=== PATIENT | female | born 1970 | race Caucasian/White ===

== ENCOUNTER 2016-11-11 19:33 | Emergency (ER) | payer OTHER ==
[2016-11-11 19:43] VITALS: BP 144/90; PULSE 73; TEMP 98; BMI 29.2
[2016-11-11 20:37] LABS: URINE APPEARANCE CLEAR; URINE BILIRUBIN NEGATIVE (NEGATIVE); URINE BLOOD NEGATIVE (NEGATIVE); URINE COLOR LTYELLOW; URINE GLUCOSE (UA) NEGATIVE (NEGATIVE); URINE KETONE NEGATIVE (NEGATIVE); URINE LEUK ESTERASE NEGATIVE (NEGATIVE); URINE NITRITE NEGATIVE (NEGATIVE); URINE PROTEIN NEGATIVE (NEGATIVE); URINE UROBILINOGEN 2.0 E.U/dl E.U./dl (0.2-1.0)
[2016-11-11] MEDS ORDERED: ONDANSETRON 4 MG/2 ML VIAL IVPUSH ONE (20:43)
[2016-11-11] MEDS ORDERED: SODIUM CHLORIDE 1,000 ML IV STA (20:43)
[2016-11-11] MEDS ORDERED: KETOROLAC TROMETHAMINE 30 MG/1 ML VIAL IM ONE (20:46)
[2016-11-11] MEDS ORDERED: KETOROLAC TROMETHAMINE 30 MG/1 ML VIAL ONE ×2 (20:54→20:55)
[2016-11-11] MEDS ORDERED: ONDANSETRON 4 MG/2 ML VIAL ONE (20:54)
--- NOTE | 2016-11-11 20:54 | PDOC ---
*Physical Exam - Vital Signs Last Vital Signs Temp Pulse Resp BP Pulse Ox 98.0 F 73 20 144/90 99 11/11/16 19:39 11/11/16 19:39 11/11/16 19:39 11/11/16 19:39 11/11/16 19:39 ED Treatment Course - LABORATORY CBC & Chemistry Diagram: 11/11/16 20:36 11/11/16 20:36 - ADDITIONAL ORDERS Additional order review: Laboratory Results 11/11/16 20:29 Urine HCG, Qual Negative Medical Decision Making - Medical Decision Making 11/11/16 20:53 Pt seen by the Advanced Practice Provider under my direct supervision Ancillary studies reviewed I agree with plan as outlined by the Advanced Practice Provider BALJIT Odonnell *DC/Admit/Observation/Transfer Diagnosis at time of Disposition: Renal colic - Discharge Dispostion Disposition: HOME - Referrals Referrals: Judd Rios MD., [Staff Physician] - Damon Acharya [Primary Care Provider] - - Patient Instructions Printed Discharge Instructions: Kidney Stones -- Adult Additional Instructions: FOLLOW UP WITH DR. RIOS (UROLOGY) THIS WEEK FOR FURTHER EVALUATION. CALL TO SCHEDULE APPOINTMENT. TAKE MEDICATIONS PRESCRIBED. YOU HAVE BEEN DIAGNOSED WITH HAVING MULTIPLE NON-OBSTRUCTING KIDNEY STONES. IF YOUR SYMPTOMS WORSEN, RETURN FOR FURTHER EVALUATION. DO NOT DRIVE, DRINK ALCOHOL, OR OPERATE HEAVY MACHINERY WHILE TAKING PERCOCET. SEGUIMIENTO CON EL DR. RIOS (UROLOGA) ESTA SEMANA PARA LA EVALUACIN ADICIONAL. LLAMAR PARA CALIFICAR LA RADHA. ANTWAN MEDICAMENTOS KILO SE PRESCRIBE. USTED AZEVEDO SIDO DIAGNOSTICADO CON TENER MLTIPLES PIEDRAS DE RIN NO OBSTRUCTIVAS. SI CRISTY SNTOMAS RESULTAN, DEVUELVA PARA EVALUACIN ADICIONAL. NO CONDUZCA, MODE ALCOHOL, NI OPERE MAQUINAS PESADAS MIENTRAS YAJAIRA PERCOCET. Print Language: KENYAN - Post Discharge Activity Work/School Note: Back to Work
[2016-11-11 20:58] LABS: BASOPHIL 0.9 % (0-2.0); EOSINOPHIL 1.2 % (0-4.5); MCH 28.7 pg (25.7-33.7); MCHC 33.4 g/dl (32.0-36.0); MEAN CELL VOLUME 85.9 fl (80-96); MEAN PLT VOLUME 8.9 fl (7.5-11.1); PLATELET COUNT 307 K/MM3 (134-434); RDW 12.4 % (11.6-15.6); WHITE BLOOD COUNT 9.4 K/mm3 (4.0-10.0)
[2016-11-11 21:28] LABS: ALBUMIN 3.8 g/dl (3.4-5.0); ANION GAP 9 (8-16); CALCIUM 8.5 mg/dL (8.5-10.1); CO2 25 mmol/L (21-32); CREATININE 0.7 mg/dL (0.55-1.02); GLUCOSE,RANDOM 85 mg/dL (74-106); SGOT/AST 14 U/L (15-37); SGPT/ALT 27 U/L (12-78); TOT PROT 7.1 g/dl (6.4-8.2)
[2016-11-11 21:35] LABS: ALK PHOS 64 U/L (45-117); BILIRUBIN,TOTAL 0.1 mg/dL (0.2-1.0)
--- NOTE | 2016-11-11 22:52 | PDOC ---
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 Patient denies fever, change in appetite, CP, Diff breathing, dysuria, hematuria or any other complaints at this time. LNMP: 09-18-2016. Timing/Duration: reports: getting worse Quality: reports: moderate, cramping, throbbing Abdominal Pain Onset Location: reports: flank (Left) Pain Radiation: reports: other (Lower Abd.) Activities at Onset: reports: none Past History - Travel Traveled outside of the country in the last 30 days: No Close contact w/someone who was outside of country & ill: No - Past Medical History Allergies/Adverse Reactions: Allergies Allergy/AdvReac Type Severity Reaction Status Date / Time No Known Allergies Allergy Verified 11/11/16 19:39 Home Medications: Ambulatory Orders Ciprofloxacin [Cipro (Restricted To Id)] 500 mg PO Q12H #20 tablet 12/07/15 Docusate Sodium [Colace -] 100 mg PO DAILY #7 capsule 12/07/15 Metronidazole [Flagyl -] 500 mg PO TID #15 tablet 12/07/15 Oxycodone HCl/Acetaminophen [Percocet 5-325 mg Tablet] 1 - 2 tab PO Q4H #30 tablet MDD 6 tab 12/07/15 Ondansetron [Zofran Odt -] 4 mg SL Q6H PRN #20 od.tablet 11/12/16 Oxycodone HCl/Acetaminophen [Oxycodone-Acetaminophen 5-325] 1 each PO Q6H PRN # 16 tablet MDD 4 tabs 11/12/16 Tamsulosin HCl [Flomax] 0.4 mg PO DAILY #20 cap.er.24h 11/12/16 Other medical history: denies - Surgical History Appendectomy: Yes - Immunization History Immunization Up to Date: Yes - Psycho/Social/Smoking Cessation Hx Anxiety: No Suicidal Ideation: No Smoking Status: No Smoking History: Never smoked Have you smoked in the past 12 months: No Number of Cigarettes Smoked Daily: 0 Information on smoking cessation initiated: No Hx Alcohol Use: No Drug/Substance Use Hx: No Substance Use Type: None Hx Substance Use Treatment: No Abd/GI Specific PMHX - Complaint Specific PMHX Colitis: No Diverticulitis: No Gall Bladder Disease: No GERD: No Hepatitis: No Irritable Bowel Synd (IBS): No Pancreatitis: No GI Ulcer Disease: No Review of Systems - Review of Systems Able to Perform ROS?: Yes Is the patient limited [place]an proficient: No Constitutional: No: Chills, Fever Respiratory: No: Cough, Orthopnea, Shortness of Breath, Stridor, Wheezing Cardiac (ROS): No: Chest Pain, Edema, Palpitations, Syncope, Chest Tightness ABD/GI: Yes: Nausea, Vomiting, Abdominal cramping. No: Constipated, Diarrhea, Difficulty Swallowing, Poor Appetite, Poor Fluid Intake, Rectal Bleeding : Yes: Flank Pain, Pain. No: Burning, Dysuria, Hematuria, Urgency Musculoskeletal: Yes: Back Pain Integumentary: No: Bruising, Erythema, Rash, Sweating Neurological: No: Headache, Numbness, Seizure, Tingling, Tremors, Weakness, Dizziness All Other Systems: Reviewed and Negative *Physical Exam - Vital Signs Last Vital Signs Temp Pulse Resp BP Pulse Ox 98.0 F 73 20 144/90 99 11/11/16 19:39 11/11/16 19:39 11/11/16 19:39 11/11/16 19:39 11/11/16 19:39 ED Treatment Course - LABORATORY CBC & Chemistry Diagram: 11/11/16 20:36 11/11/16 20:36 - ADDITIONAL ORDERS Additional order review: Laboratory Results 11/11/16 11/11/16 20:36 20:29 Sodium 141 Potassium 4.1 Chloride 107 Carbon Dioxide 25 Anion Gap 9 BUN 19 H D Creatinine 0.7 D Creat Clearance w eGFR > 60 Random Glucose 85 Calcium 8.5 Total Bilirubin 0.1 L D AST 14 L D ALT 27 Alkaline Phosphatase 64 Total Protein 7.1 Albumin 3.8 Urine Color Ltyellow Urine Appearance Clear Urine pH 6.0 Ur Specific [place] 1.020 Urine Protein Negative Urine Glucose (UA) Negative Urine Ketones Negative Urine Blood Negative Urine Nitrite Negative Urine Bilirubin Negative Urine Urobilinogen 2.0 e.u/dl H Ur Leukocyte Esterase Negative Urine HCG, Qual Negative 11/11/16 20:36 RBC 4.26 MCV 85.9 MCHC 33.4 RDW 12.4 MPV 8.9 Neutrophils % 60.0 D Lymphocytes % 31.4 D Monocytes % 6.5 Eosinophils % 1.2 D Basophils % 0.9 D - RADIOLOGY Radiology Studies Ordered: Category Date Time Status ABDOMEN & PELVIS CT W/O CONTR [CT] Stat CT Scan 11/11/16 20:45 Completed - Medications Given in the ED: ED Medications Discontinued Medications Generic Name Dose Route Start Last Admin Trade Name Freq PRN Reason Stop Dose Admin Sodium Chloride 1,000 mls @ 1,000 mls/hr 11/11/16 20:43 11/11/16 20:55 Normal Saline - IV 11/11/16 21:42 1,000 mls/hr ASDIR STA Administration Ketorolac Tromethamine 30 mg 11/11/16 20:46 11/11/16 20:55 Toradol Injection - IM 11/11/16 20:47 30 mg ONCE ONE Administration Ondansetron HCl 4 mg 11/11/16 20:43 11/11/16 20:55 Zofran Injection IVPUSH 11/11/16 20:44 4 mg ONCE ONE Administration *DC/Admit/Observation/Transfer Diagnosis at time of Disposition: Renal colic - Discharge Dispostion Disposition: HOME Condition at time of disposition: Improved Admit: No - Prescriptions Prescriptions: Tamsulosin HCl [Flomax] 0.4 mg PO DAILY #20 cap.er.24h Oxycodone HCl/Acetaminophen [Oxycodone-Acetaminophen 5-325] 1 each PO Q6H PRN # 16 tablet MDD 4 tabs PRN Reason: Severe Pain Ondansetron [Zofran Odt -] 4 mg SL Q6H PRN #20 od.tablet PRN Reason: Nausea - Referrals Referrals: Damon Acharya [Primary Care Provider] - Judd Crowe MD., MD [Staff Physician] - - Patient Instructions Printed Discharge Instructions: Kidney Stones -- Adult Additional Instructions: FOLLOW UP WITH DR. CROWE (UROLOGY) THIS WEEK FOR FURTHER EVALUATION. CALL TO SCHEDULE APPOINTMENT. TAKE MEDICATIONS PRESCRIBED. YOU HAVE BEEN DIAGNOSED WITH HAVING MULTIPLE NON-OBSTRUCTING KIDNEY STONES. IF YOUR SYMPTOMS WORSEN, RETURN FOR FURTHER EVALUATION. DO NOT DRIVE, DRINK ALCOHOL, OR OPERATE HEAVY MACHINERY WHILE TAKING PERCOCET. SEGUIMIENTO CON EL DR. CROWE (UROLOGA) ESTA SEMANA PARA LA EVALUACIN ADICIONAL. LLAMAR PARA CALIFICAR LA RADHA. ANTWAN MEDICAMENTOS KILO SE PRESCRIBE. USTED AZEVEDO SIDO DIAGNOSTICADO CON TENER MLTIPLES PIEDRAS DE RIN NO OBSTRUCTIVAS. SI CRISTY SNTOMAS RESULTAN, DEVUELVA PARA EVALUACIN ADICIONAL. NO CONDUZCA, MODE ALCOHOL, NI OPERE MAQUINAS PESADAS MIENTRAS YAJAIRA PERCOCET. Print Language: BAHAMIAN - Post Discharge Activity Work/School Note: Back to Work
== END 2016-11-12 01:00 | disposition home or self-care (01) ==
LOC: JER 19:33
PROC: 3E033GC Introduction of Other Therapeutic Substance into Peripheral Vein, Percutaneous Approach (ICD-10-PCS; principal; 2016-11-11)
PROC: 3E0233Z Introduction of Anti-inflammatory into Muscle, Percutaneous Approach (ICD-10-PCS; 2016-11-11)
DX: N23 Unspecified renal colic (principal)
CPT/HCPCS: 36415; 74176-TC; 80053; 81003; 84703; 85025; 99282-25

== ENCOUNTER 2017-05-04 09:05 | Day surgery (SDC) | payer OTHER ==
[2017-04-19 11:28] VITALS: BMI 29.7
--- NOTE | 2017-05-04 10:44 | OP ---
Operative Note - Note: Operative Date: 05/04/17 Pre-Operative Diagnosis: Right renal calculus Operation: Right ESWL Post-Operative Diagnosis: Same as Pre-op Surgeon: Judd Crowe MD. Anesthesia: MAC Operative Report Dictated: Yes
[2017-05-04] MEDS ORDERED: PROPOFOL 20 ML ONE (11:07)
[2017-05-04] MEDS ORDERED: MIDAZOLAM HCL 2 MG/2 ML SINGLE DOSE VIAL ONE (11:07)
[2017-05-04] MEDS ORDERED: ONDANSETRON 4 MG/2 ML VIAL IVPUSH PRN (11:44)
[2017-05-04] MEDS ORDERED: oxyCODONE HCL 5 MG TABLET PO PRN (11:44)
[2017-05-04] MEDS ORDERED: ACETAMINOPHEN 325 MG TABLET (FP) PO PRN (11:44)
[2017-05-04] MEDS ORDERED: IBUPROFEN 800 MG/8 ML IJ IVPB PRN (11:44)
[2017-05-04] MEDS ORDERED: LACTATED RINGERS SOLUTION 1,000 ML IV SCH (11:45)
[2017-05-04 12:51] VITALS: TEMP 97.5
[2017-05-04 13:08] VITALS: BP 113/65; PULSE 60
--- NOTE | 2017-05-05 08:32 | OP ---
DATE OF OPERATION: 05/04/2017 SURGEON: Judd Crowe MD PREOPERATIVE DIAGNOSIS: Right renal calculus. POSTOPERATIVE DIAGNOSIS: Right renal calculus. PROCEDURE: Right lithotripsy. HISTORY: The patient is a 46-year-old female with history of intermittent flank pain who on preoperative evaluation had a 17-mm upper pole renal calculus. We discussed some treatment options including observation, and the patient elected to undergo the above stated procedure. Risks and benefits of treatment and alternative treatments were discussed in detail. All questions were answered. BRIEF OPERATIVE NOTE: The patient was brought to the operating room, placed in supine position. Once adequate anesthesia was administered, the stone was localized using ultrasonography. At this time, sedation was administered. The stone was again confirmed using three-dimensional axis. Approximately 2500 shocks were delivered in electromagnetic fashion. The stone appeared to fragment into multiple small fragments. Patient tolerated the procedure well and was brought to the recovery room in stable and satisfactory condition. JUDD CROWE M.D. RADHA/[id number]
== END 2017-05-04 15:40 | disposition home or self-care (01) ==
LOC: JASU-SURG 09:05
PROVIDERS: ATTEND Urology
PROC: 0TF3XZZ Fragmentation in Right Kidney Pelvis, External Approach (ICD-10-PCS; principal; 2017-05-04 10:45)
DX: N20.0 Calculus of kidney (principal)
CPT/HCPCS: 84703; 94760

== ENCOUNTER 2017-07-13 08:31 | Day surgery (SDC) | payer OTHER ==
[2017-07-13] MEDS ORDERED: MIDAZOLAM HCL 2 MG/2 ML SINGLE DOSE VIAL ONE (10:07)
[2017-07-13] MEDS ORDERED: PROPOFOL 20 ML ONE (10:07)
[2017-07-13] MEDS ORDERED: LIDOCAINE HCL/PF 2% SDV 5ML VIAL ONE (10:07)
--- NOTE | 2017-07-13 10:23 | OP ---
Operative Note - Note: Operative Date: 07/13/17 Pre-Operative Diagnosis: right renal stone Operation: Right lithotripsy Post-Operative Diagnosis: Same as Pre-op Surgeon: Judd Crowe MD. Anesthesia: General
[2017-07-13] MEDS ORDERED: ONDANSETRON 4 MG/2 ML VIAL IVPUSH PRN (10:50)
[2017-07-13] MEDS ORDERED: oxyCODONE HCL 5 MG TABLET PO PRN (10:50)
[2017-07-13] MEDS ORDERED: IBUPROFEN 800 MG/8 ML IJ IVPB PRN (10:50)
[2017-07-13] MEDS ORDERED: LACTATED RINGERS SOLUTION 1,000 ML IV SCH (11:00)
[2017-07-13 13:30] VITALS: TEMP 97.8
[2017-07-13 15:11] VITALS: BP 109/82; PULSE 75
--- NOTE | 2017-07-14 07:59 | OP ---
DATE OF OPERATION: 07/13/2017 PREOPERATIVE DIAGNOSIS: Right renal calculus. PROCEDURE: Right lithotripsy. HISTORY: This is a 47-year-old female with a history of a right 5- to 6-mm lower pole calculus found on preoperative imaging. After discussing treatment options including observation, the patient above stated procedure. Risks, benefits, and alternatives were discussed in detail. All questions were answered. BRIEF OPERATIVE NOTE: The patient brought into the operating room, placed in the supine position. Once the stone was visualized using 3-D fluoroscopy, sedation was administered. The patient tolerated the procedure well after approximately 2500 shocks were delivered in fashion. Patient then transferred to the recovery room in stable and satisfactory condition. Melina [id number]
== END 2017-07-13 15:13 | disposition home or self-care (01) ==
LOC: JASU-SURG 08:31
PROVIDERS: ATTEND Urology
PROC: 0TF3XZZ Fragmentation in Right Kidney Pelvis, External Approach (ICD-10-PCS; principal; 2017-07-13 09:45)
DX: N20.0 Calculus of kidney (principal)
CPT/HCPCS: 84703

== ENCOUNTER 2018-08-22 18:11 | Emergency (ER) | payer OTHER ==
--- NOTE | 2018-08-22 18:43 | PDOC ---
Rapid Medical Evaluation Medical Evaluation: Allergies Allergy/AdvReac Type Severity Reaction Status Date / Time No Known Allergies Allergy Verified 07/12/17 14:23 08/22/18 18:42 I have performed a brief in-person evaluation of this patient. The patient presents with a chief complaint of: Pertinent physical exam findings: I have ordered the following: The patient will proceed to the ED for further evaluation. 08/22/18 19:52 Discharge Disposition - Referrals Referrals: Ty Carranza MD [Primary Care Provider] - - Patient Instructions - Post Discharge Activity
[2018-08-22 18:48] VITALS: BP 130/81; PULSE 106; TEMP 100.7; BMI 29.2
--- NOTE | 2018-08-22 18:50 | PDOC ---
Rapid Medical Evaluation Chief Complaint: Shortness of Breath Medical Evaluation: Allergies Allergy/AdvReac Type Severity Reaction Status Date / Time No Known Allergies Allergy Verified 07/12/17 14:23 08/22/18 18:43 I have performed a brief in-person evaluation of this patient. The patient presents with a chief complaint of:cough/ fevers/ chills/ bady aches Pertinent physical exam findings: pale/ moist cough/ weak I have ordered the following: Influenza The patient will proceed to the ED for further evaluation. Discharge Disposition - Referrals Referrals: Ty Carranza MD [Primary Care Provider] - - Patient Instructions - Post Discharge Activity
[2018-08-22] MEDS ORDERED: SODIUM CHLORIDE 2,041 ML IV ONE (19:27)
--- NOTE | 2018-08-22 19:30 | PDOC ---
Attending Attestation - ED Attending Attestation I have performed the following: I have examined & evaluated the patient, The case was reviewed & discussed with the resident, I agree w/resident's findings & plan - HPI HPI: 08/22/18 19:54 The patient is a 48 year old female with no significant PMH presenting with cough and body aches for the past two days. Patient is also complaining of mild dysuria two days ago, that has since resolved on its own. Patient has not taken any medications at home. Patient denies having her flu shot this year. The patient denies chest pain, shortness of breath, headache and dizziness. Denies fever, chills, nausea, vomit, diarrhea and constipation. Denies frequency, urgency and hematuria. Allergies: NKA Past surgical history: appendectomy Social history: No reported alcohol, drug or cigarette use. PCP: Dr. Carranza - Physicial Exam PE: <Leonie Garrett - Last Filed: 08/22/18 22:10> - Resident Resident Name: Kristi Cedillo - Physicial Exam PE: 08/22/18 22:09 GENERAL: Awake, in no acute distress HEAD: No signs of trauma EYES: ENT:clear without exudates. Moist mucosa NECK: Normal ROM, supple, no lymphadenopathy, JVD, or masses LUNGS:. Normal work of breathing. HEART: Regular rate and rhythm, ABDOMEN: Soft, . Non-distended. CHEST WALL: BACK: No midline tenderness. EXTREMITIES:. No erythema, or tenderness NEUROLOGICAL: Alert, SKIN: Warm, Dry - Medical Decision Making 08/22/18 22:05 48-year-old female with body aches and fever Influenza A swab is positive Chest x-ray shows no focal consolidation Labs do not suggest sepsis Impression influenza a Plan DC home with primary care follow-up and supportive care <Darlene Munoz - Last Filed: 08/22/18 22:12>
[2018-08-22] MEDS ORDERED: ACETAMINOPHEN INJECTION 100 ML IVPB ONE (19:48)
--- NOTE | 2018-08-22 20:05 | PDOC ---
History of Present Illness - General Chief Complaint: Shortness of Breath Stated Complaint: Shortness of Breath Time Seen by Provider: 08/22/18 19:15 History Source: Patient Exam Limitations: No Limitations - History of Present Illness Initial Comments: 08/22/18 19:59 [id number] previously healthy female who is UTD on immunizations except did not get flu shot this year, p/w 2 days worsening cough, sore throat, mild SOB, head-to- toe body aches, chills worsening today to the point where she decided she needed to come in. She additionally notes burning urination for one day, two days ago. Took naproxen yesterday, no medications for sxs today. She denies headache, neck pain/stiffness, back pain, chest pain, abdominal pain, n/v/d/c, etc. Past History - Past Medical History Allergies/Adverse Reactions: Allergies Allergy/AdvReac Type Severity Reaction Status Date / Time No Known Allergies Allergy Verified 08/22/18 18:47 Home Medications: Ambulatory Orders NK [No Known Home Medication] 11/12/16 Anemia: No Asthma: No Cancer: No Cardiac Disorders: No CVA: No COPD: No CHF: No Dementia: No Diabetes: No GI Disorders: No Disorders: Yes (kidney stone) HTN: No Hypercholesterolemia: No Liver Disease: No Seizures: No Thyroid Disease: No - Surgical History Appendectomy: Yes - Immunization History Immunization Up to Date: Yes - Suicide/Smoking/Psychosocial Hx Smoking Status: No Smoking History: Never smoked Have you smoked in the past 12 months: No Number of Cigarettes Smoked Daily: 0 Information on smoking cessation initiated: No Hx Alcohol Use: No Drug/Substance Use Hx: No Substance Use Type: None Hx Substance Use Treatment: No Review of Systems - Review of Systems Able to Perform ROS?: Yes Comments:: 08/22/18 20:02 GEN: chills, malaise, generalized weakness, no fever, or weight change HEENT: no ear pain, sore throat, vision change, or eye pain CV: no chest pain, palpitations, lightheadedness, syncope, or edema RESP: cough, no wheezing GI: no abdominal pain, nausea, vomiting, diarrhea, constipation, or white/black/ bloody stool : dysuria (resolved), hematuria, incontinence, retention, bleeding, or discharge MSK: no neck/back pain, muscle weakness/pain, or joint swelling/pain NEURO: no headache, seizure, vertigo, numbness, tingling, or focal weakness PSYCH: no substance use, no behavior change SKIN: no jaundice, no rash ROS otherwise negative except as noted in HPI *Physical Exam - Vital Signs Last Vital Signs Temp Pulse Resp BP Pulse Ox 100.7 F H 106 H 21 H 130/81 98 08/22/18 18:45 08/22/18 18:45 08/22/18 18:45 08/22/18 18:45 08/22/18 18:45 - Physical Exam Comments: 08/22/18 20:04 GENERAL: tired and a bit toxic appearing-appearing, a bit diaphoretic and pale, A/Ox4, mild distress, answers questions appropriately, Citizen Of [place] speaking, sons at bedside HEENT: PERRLA, EOMI, moist mucous membranes NECK/BACK: no midline ttp, no spinal stepoff or deformity, no hematoma, full ROM , neck supple CARDIOVASCULAR: rapid regular rate, normal S1S2, no MGR, strong peripheral pulses, capillary refill <2 seconds, extremities wwp, no edema LUNGS/RESPIRATORY: no respiratory distress, CTAB GI/ABDOMEN: symmetric [id number], normoactive BS, soft, no ttp, no midline pulsatile masses : no CVA tenderness EXTREMITIES: no muscle atrophy, no acute deformity, no edema SKIN: warm and dry, no pallor, no jaundice, no rash, no bruising, no skin breakdown, no cuts, no lesions NEUROLOGICAL: GCS 15, CN II-XII grossly intact, 5/5 strength proximally and distally, no facial droop Moderate Sedation - Procedure Monitoring Vital Signs: Procedure Monitoring Vital Signs Temperature 100.7 F H 08/22/18 18:45 Pulse Rate 106 H 08/22/18 18:45 Respiratory Rate 21 H 08/22/18 18:45 Blood Pressure 130/81 08/22/18 18:45 O2 Sat by Pulse Oximetry (%) 98 08/22/18 18:45 ED Treatment Course - LABORATORY CBC & Chemistry Diagram: 08/22/18 19:45 08/22/18 19:45 - RADIOLOGY Radiology Studies Ordered: Category Date Time Status CHEST PA & LAT [RAD] Stat Radiology 08/22/18 19:28 Ordered Medical Decision Making - Medical Decision Making 08/22/18 20:06 Adult female patient p/w cough, sore throat, head-to-toe body aches x2 days. Vital Signs Temperature 100.7 F H 08/22/18 18:45 Pulse Rate 106 H 08/22/18 18:45 Respiratory Rate 21 H 08/22/18 18:45 Blood Pressure 130/81 08/22/18 18:45 O2 Sat by Pulse Oximetry (%) 98 08/22/18 18:45 Exam: As noted in Physical Exam section. DDX IBNLT: influenza, bronchitis/PNA, other viral URI, tracheitis W/U ordered: per hospital protocol ordering sepsis order set, flu swab sent [place] ordered: [facility] EKG: Reviewed; results as noted in ECG Review section. Laboratory Tests 08/22/18 08/22/18 08/22/18 18:50 19:45 19:45 WBC 5.0 RBC 4.60 Hgb 13.0 Hct 38.3 MCV 83.2 MCH 28.4 MCHC 34.1 RDW 12.9 Plt Count 332 MPV 8.4 Absolute Neuts (auto) 3.3 Neutrophils % 66.6 Lymphocytes % 21.8 D Monocytes % 10.0 Eosinophils % 1.2 Basophils % 0.4 Nucleated RBC % 0 Sodium 138 Potassium 3.6 Chloride 104 Carbon Dioxide 26 Anion Gap 8 BUN 11 Creatinine 0.6 Creat Clearance w eGFR > 60 Random Glucose 74 Lactic Acid Calcium 8.9 Total Bilirubin 0.3 AST 33 ALT 65 H Alkaline Phosphatase 97 Troponin I < 0.02 Total Protein 7.9 Albumin 4.2 Serum , Qual Influenza A (Rapid) Positive A Influenza B (Rapid) Negative 08/22/18 08/22/18 19:45 19:45 WBC RBC Hgb Hct MCV MCH MCHC RDW Plt Count MPV Absolute Neuts (auto) Neutrophils % Lymphocytes % Monocytes % Eosinophils % Basophils % Nucleated RBC % Sodium Potassium Chloride Carbon Dioxide Anion Gap BUN Creatinine Creat Clearance w eGFR Random Glucose Lactic Acid 0.8 Calcium Total Bilirubin AST ALT Alkaline Phosphatase Troponin I Total Protein Albumin Serum , Qual Negative Influenza A (Rapid) Influenza B (Rapid) Reassessment: Patient states feeling much better, repeat exam is benign. CXR: Repeat VS: DISCHARGE This patient has gotten significant relief of symptoms while in the ED. On last reassessment, vitals are wnl, pain is reasonably controlled, and exam is benign. Workup is not concerning for emergency-level pathology at this time. This patient is appropriate for discharge with close outpatient follow up. They are comfortable with this plan and will follow up with their primary care provider in 1-3 days. Specific return precautions are discussed and they will come back to the ER if necessary. *DC/Admit/Observation/Transfer Diagnosis at time of Disposition: Influenza A - Discharge Dispostion Disposition: HOME Condition at time of disposition: Stable Decision to Admit order: No - Referrals Referrals: Ty Carranza MD [Primary Care Provider] - - Patient Instructions Printed Discharge Instructions: DI for Influenza -- Adult Additional Instructions: You were seen in the ER for influenza. We gave medications for the fever and some IV fluids. After our assessment, we do not believe there is a medical emergency at this time, and we believe it is safe to go home. Take Tylenol and Naproxen if needed for fever and body aches. Please follow up with your regular PCP in 1-3 days. Call their clinic as soon as possible, tell them you were seen in the ER, and tell them you need an appointment. If there are any new or worsening symptoms, especially rash, difficulty breathing, chest pain, fainting , or other symptoms, please come back to the ER at any time (24 hours a day). If the symptoms appear severe or life-threatening, please call 911 to have an ambulance take you to the ER. - Post Discharge Activity
[2018-08-22 20:14] LABS: BASO % 0.4 % (0-2.0); EOS % 1.2 % (0-4.5); HEMATOCRIT 38.3 % (32.4-45.2); LYMPH % 21.8 % (8-40); MCH 28.4 pg (25.7-33.7); MCHC 34.1 g/dl (32.0-36.0); MEAN CELL VOLUME 83.2 fl (80-96); MEAN PLT VOLUME 8.4 fl (7.5-11.1); NEUT % 66.6 % (42.8-82.8); PLATELET COUNT 332 K/MM3 (134-434); RDW 12.9 % (11.6-15.6)
[2018-08-22 20:48] LABS: ALBUMIN 4.2 g/dl (3.4-5.0); ALK PHOS 97 U/L (45-117); ANION GAP 8 MMOL/L (8-16); BILIRUBIN,TOTAL 0.3 mg/dL (0.2-1); BLOOD UREA NITROGEN 11 mg/dL (7-18); CALCIUM 8.9 mg/dL (8.5-10.1); CHLORIDE 104 mmol/L (98-107); CO2 26 mmol/L (21-32); CREATININE 0.6 mg/dL (0.55-1.3); GLUCOSE,RANDOM 74 mg/dL (74-106); POTASSIUM 3.6 mmol/L (3.5-5.1); SGOT/AST 33 U/L (15-37); SGPT/ALT 65 U/L (13-61); SODIUM 138 mmol/L (136-145); TOT PROT 7.9 g/dl (6.4-8.2)
[2018-08-22 21:01] LABS: URINE APPEARANCE CLEAR; URINE BILIRUBIN NEGATIVE (<2.0 mg/dL); URINE COLOR LTYELLOW; URINE GLUCOSE (UA) NEGATIVE (NEGATIVE); URINE KETONE NEGATIVE (NEGATIVE); URINE LEUK ESTERASE NEGATIVE (NEGATIVE); URINE NITRITE NEGATIVE (NEGATIVE); URINE PROTEIN NEGATIVE (NEGATIVE); URINE UROBILINOGEN NEGATIVE mg/dL (0.2-1.0)
[2018-08-22] MEDS ORDERED: ACETAMINOPHEN 1000 MG/100 ML VIAL (NON FORMULARY) IVPB ONE (23:58)
--- NOTE | 2018-08-23 18:12 | EKG ---
Test Reason : Blood Pressure : / mmHG Vent. Rate : 081 BPM Atrial Rate : 081 BPM P-R Int : 132 ms QRS Dur : 076 ms QT Int : 384 ms P-R-T Axes : 073 063 060 degrees QTc Int : 446 ms NORMAL SINUS RHYTHM NORMAL ECG Confirmed by MD TODD, JENNIFER ([id number]) on 08/23/2018 6:12:11 PM Referred By: Confirmed By:JENNIFER BROOKS MD
== END 2018-08-22 23:15 | disposition home or self-care (01) ==
LOC: JERFT 18:11 → JER 18:11
PROC: 3E0337Z Introduction of Electrolytic and Water Balance Substance into Peripheral Vein, Percutaneous Approach (ICD-10-PCS; principal; 2018-08-22)
PROC: 3E0337Z Introduction of Electrolytic and Water Balance Substance into Peripheral Vein, Percutaneous Approach (ICD-10-PCS; 2018-08-22)
PROC: 3E033NZ Introduction of Analgesics, Hypnotics, Sedatives into Peripheral Vein, Percutaneous Approach (ICD-10-PCS; 2018-08-22)
DX: J09.X2 Influenza due to identified novel influenza A virus with other respiratory manifestations (principal)
CPT/HCPCS: 36415; 71046-TC-FY; 80053; 81003; 83605; 84484; 84703; 85025; 87040; 87086; 87804; 93005; 93010; 96361; 96374; 99283-25; J0131; J7030

== ENCOUNTER 2020-06-25 04:28 | Day surgery (SDC) | payer OTHER ==
[2020-06-24 13:18] VITALS: BMI 29.2
[2020-06-25] MEDS ORDERED: ELECTROLYTE-148 SOLN 1,000 ML IV SCH (11:30)
[2020-06-25] MEDS ORDERED: MIDAZOLAM HCL 2 MG/2 ML SINGLE DOSE VIAL ONE (11:33)
[2020-06-25] MEDS ORDERED: ONDANSETRON 4 MG/2 ML VIAL IVPUSH PRN (12:48)
[2020-06-25] MEDS: ACETAMINOPHEN 325 MG TABLET (FP) PO PRN ×3 (13:30→18:21)
[2020-06-25] MEDS ORDERED: LACTATED RINGERS SOLUTION 1000 ML INFUS.BAG IV ONE (16:15)
[2020-06-25 17:37] LABS: HEMATOCRIT 34.3 % (32.4-45.2); HEMOGLOBIN 11.5 GM/dL (10.7-15.3); MCH 28.5 pg (25.7-33.7); MCHC 33.7 g/dl (32.0-36.0); MEAN CELL VOLUME 84.6 fl (80-96); MEAN PLT VOLUME 7.8 fl (7.5-11.1); PLATELET COUNT 224 K/MM3 (134-434); RBC 4.05 M/mm3 (3.60-5.2); RDW 12.8 % (11.6-15.6); WHITE BLOOD COUNT 7.8 K/mm3 (4.0-10.0)
[2020-06-25] MEDS ORDERED: ACETAMINOPHEN 325 MG TABLET (FP) ONE (18:19)
[2020-06-25] MEDS: LACTATED RINGERS SOLUTION 1,000 ML IV SCH (19:09)
[2020-06-26] MEDS: ACETAMINOPHEN 325 MG TABLET (FP) PO PRN ×2 (08:51→18:33)
[2020-06-26 10:26] LABS: BASO % 0.2 % (0-2.0); EOS % 0.2 % (0-4.5); HEMATOCRIT 36.8 % (32.4-45.2); HEMOGLOBIN 11.9 GM/dL (10.7-15.3); LYMPH % 5.1 % (8-40); MCH 27.6 pg (25.7-33.7); MCHC 32.3 g/dl (32.0-36.0); MEAN CELL VOLUME 85.3 fl (80-96); MEAN PLT VOLUME 9.4 fl (7.5-11.1); MONO % 3.5 % (3.8-10.2); PLATELET COUNT 201 K/MM3 (134-434); RBC 4.31 M/mm3 (3.60-5.2)
[2020-06-26 10:42] LABS: POTASSIUM 3.8 mmol/L (3.5-5.1)
[2020-06-26 10:44] LABS: BLOOD UREA NITROGEN 12.3 mg/dL (7-18); CALCIUM 8.7 mg/dL (8.5-10.1)
[2020-06-26 10:47] LABS: CREATININE 0.8 mg/dL (0.55-1.3)
[2020-06-26 11:30] LABS: EPI CELLS 15 /uL (0-25.1); HYALINE CASTS 7 /uL (0-3.1); URINE APPEARANCE CLEAR; URINE BACTERIA 849 /uL (0-1359); URINE BILIRUBIN NEGATIVE (NEGATIVE); URINE COLOR YELLOW; URINE GLUCOSE (UA) NEGATIVE (NEGATIVE); URINE KETONE NEGATIVE (NEGATIVE); URINE LEUK ESTERASE 3+ (NEGATIVE); URINE NITRITE NEGATIVE (NEGATIVE); URINE PROTEIN 1+ (NEGATIVE); URINE RBC 17 /uL (0-23.9); URINE WBC 427 /uL (0-25.8)
[2020-06-26 11:45] LABS: ANISOCYTOSIS 1+; MACROCYTOSIS 0; PLATELET ESTIMATE NORMAL
[2020-06-26] MEDS: LACTATED RINGERS SOLUTION 1,000 ML IV SCH (15:16)
[2020-06-26] MEDS ORDERED: CEFTRIAXONE 1 GM in DEXTROSE 5%-WATER - 50 ML IVPB ONE (15:16)
[2020-06-26 15:32] VITALS: BP 101/41; PULSE 102; TEMP 99.5
[2020-06-26] MEDS ORDERED: cefTRIAXone SODIUM 1 GM VIAL ONE (16:52)
[2020-06-26] MEDS ORDERED: DEXTROSE 5%-WATER - 50 ML IVPB ONE (16:53)
[2020-06-26] MEDS ORDERED: CIPROFLOXACIN 250 MG TABLET (RESTRICTED TO ID) PO SCH ×2 (22:00)
[2020-06-27] MEDS ORDERED: CIPROFLOXACIN 250 MG TABLET (RESTRICTED TO ID) PO SCH (10:00)
== END 2020-06-26 18:56 | disposition home or self-care (01) ==
LOC: JASUSAT 04:28 → JASU-SURG 04:28 → J8W 19:31 → JASUSAT 06-26 18:56
PROVIDERS: ATTEND Urology
PROC: 0TF3XZZ Fragmentation in Right Kidney Pelvis, External Approach (ICD-10-PCS; principal; 2020-06-25 11:00)
DX: N20.0 Calculus of kidney (principal)
CPT/HCPCS: 36415; 74176-TC; 80048; 81003; 85025; 85027

== ENCOUNTER 2021-01-21 04:18 | Day surgery (SDC) | payer OTHER ==
[2021-01-20 11:41] VITALS: BMI 29.2
[2021-01-21] MEDS ORDERED: LIDOCAINE 1%/EPI 1:100000 (50 ML MULTI DOSE VIAL) ONE (11:03)
[2021-01-21] MEDS ORDERED: VASOPRESSIN 20 UNITS/ML VIAL IV ONE (11:03)
[2021-01-21] MEDS ORDERED: MIDAZOLAM HCL 2 MG/2 ML SINGLE DOSE VIAL ONE (11:54)
[2021-01-21] MEDS ORDERED: PROPOFOL 20 ML ONE ×2 (11:54)
[2021-01-21] MEDS ORDERED: SUCCINYLCHOLINE CHLORIDE 200 MG/10 ML SYRINGE ONE (11:54)
[2021-01-21] MEDS ORDERED: DEXAMETHASONE SOD PHOSPHATE 4 MG/1 ML VIAL ONE (11:56)
[2021-01-21] MEDS ORDERED: ELECTROLYTE-148 SOLN 1,000 ML IV SCH (12:00)
[2021-01-21] MEDS ORDERED: LIDOCAINE 1%/EPI 1:100000 (20 ML MULTI DOSE VIAL) IJ ONE (12:18)
[2021-01-21] MEDS ORDERED: oxyCODONE HCL 5 MG TABLET PO PRN ×2 (12:58)
[2021-01-21] MEDS ORDERED: ONDANSETRON 4 MG/2 ML VIAL IVPUSH PRN (12:58)
[2021-01-21] MEDS ORDERED: LACTATED RINGERS SOLUTION 1,000 ML IV SCH (13:00)
[2021-01-21] MEDS ORDERED: oxyCODONE HCL 5 MG TABLET PO ONE ×2 (14:55→15:25)
[2021-01-21] MEDS ORDERED: oxyCODONE HCL 5 MG TABLET ONE ×2 (14:57→15:20)
[2021-01-21 16:22] VITALS: BP 127/80; PULSE 69; TEMP 97.7
== END 2021-01-21 16:05 | disposition home or self-care (01) ==
LOC: JASU-SURG 04:18
PROVIDERS: ATTEND Urology
PROC: 0TSD0ZZ Reposition Urethra, Open Approach (ICD-10-PCS; principal; 2021-01-21 12:12)
DX: N39.3 Stress incontinence (female) (male) (principal)
CPT/HCPCS: 57288; C1771; 81025; 88302-TC; 94760